=== PATIENT | male | born 1950 | race Native Hawaiian/Other Pacific Islander ===

== ENCOUNTER 2017-03-26 08:15 | Outpatient (CLI) | payer OTHER ==
[~2017-03-26 08:15] MED LIST: AMOX500C85 PO; ASA LO-DOSE81 MG PO; BENICAR20 MG PO; FLUT0.05 NAS; TESTOST CYP100 MG/ML IM; VIAGRA50 MG OR
[2017-03-26 08:33] LABS: PLATELET COUNT 196 K/uL (142-355)
[2017-03-26 08:55] LABS: POTASSIUM 4.4 mmol/L (3.6-5.2)
== END 2017-03-26 19:27 | disposition home or self-care (01) ==
LOC: LABW 08:15
PROVIDERS: Internal Medicine
DX: E29.1 Testicular hypofunction (principal); I10 Essential (primary) hypertension; Z12.5 Encounter for screening for malignant neoplasm of prostate
CPT/HCPCS: 36415; 80053; 80061; 81000; 84153; 84403; 84443; 85027

== ENCOUNTER 2018-04-01 08:08 | Outpatient (CLI) | payer OTHER ==
[2018-04-01 08:32] LABS: PLATELET COUNT 183 K/uL (142-355)
[2018-04-01 08:55] LABS: POTASSIUM 4.5 mmol/L (3.6-5.2)
== END 2018-04-01 18:56 | disposition home or self-care (01) ==
LOC: LABW 08:08
PROVIDERS: Internal Medicine
DX: E29.1 Testicular hypofunction (principal); N40.0 Benign prostatic hyperplasia without lower urinary tract symptoms; I10 Essential (primary) hypertension; E03.9 Hypothyroidism, unspecified
CPT/HCPCS: 36415; 80053; 80061; 81000; 84153; 84403; 84439; 84443; 85027

== ENCOUNTER 2019-05-18 08:03 | Outpatient (CLI) | payer OTHER ==
[2019-05-18 08:44] LABS: PLATELET COUNT 193 K/uL (142-355)
[2019-05-18 09:01] LABS: POTASSIUM 4.3 mmol/L (3.6-5.2)
== END 2019-05-18 22:42 | disposition home or self-care (01) ==
LOC: LABW 08:03
PROVIDERS: Internal Medicine
DX: I10 Essential (primary) hypertension (principal); E03.8 Other specified hypothyroidism; E29.1 Testicular hypofunction
CPT/HCPCS: 36415; 80053; 80061; 81000; 84153; 84402; 84403; 84443; 85027

== ENCOUNTER 2021-11-06 12:44 | Emergency (ER) | payer OTHER ==
[~2021-11-06] VITALS: Ht 154.9 cm; Wt 99.8 kg
[2021-11-06 12:53] VITALS: TEMP 99
[2021-11-06 13:30] LABS: PLATELET COUNT 175 K/uL (142-355)
[2021-11-06 13:54] LABS: POTASSIUM 3.9 mmol/L (3.6-5.2)
[2021-11-06 14:17] VITALS: BP 143/81
[2021-11-06] MEDS ORDERED: AMOX875T8 PO (14:22)
== END 2021-11-06 14:31 | disposition home or self-care (01) ==
LOC: ED 12:44
PROVIDERS: Emergency Medicine
DX: L98.8 Other specified disorders of the skin and subcutaneous tissue (principal); S90.32XA Contusion of left foot, initial encounter; X58.XXXA Exposure to other specified factors, initial encounter; Y92.89 Other specified places as the place of occurrence of the external cause
CPT/HCPCS: 80048; 85027; 96372; 99283; J0696